=== PATIENT | male | born 1950 | race American Indian/Alaskan Native ===

== ENCOUNTER 2016-08-26 10:47 | Emergency (ER) | payer OTHER ==
[2016-08-26 11:00] VITALS: BP 171/82; TEMP 98.9
== END 2016-08-26 10:49 | disposition home or self-care (01) ==
LOC: ED 10:47
DX: Z01.30 Encounter for examination of blood pressure without abnormal findings (principal)

== ENCOUNTER 2018-01-15 10:21 | Emergency (ER) | payer OTHER ==
[~2018-01-15] VITALS: Ht 195.6 cm; Wt 90.7 kg
[2018-01-15 10:25] VITALS: BP 157/87; TEMP 97.5
== END 2018-01-15 10:30 | disposition home or self-care (01) ==
LOC: ED 10:21
DX: Z01.30 Encounter for examination of blood pressure without abnormal findings (principal)
CPT/HCPCS: 99281

== ENCOUNTER 2018-06-01 05:56 | Day surgery (SDC) | payer OTHER ==
[~2018-06-01] VITALS: Ht 30.5 cm; Wt 0.0 kg
== END 2018-06-01 08:45 | disposition home or self-care (01) ==
LOC: OR 05:56
PROC: 08RJ3JZ Replacement of Right Lens with Synthetic Substitute, Percutaneous Approach (ICD-10-PCS; principal; 2018-06-01)
DX: H25.811 Combined forms of age-related cataract, right eye (principal)
CPT/HCPCS: 66984; J0171; J2250; V2632